=== PATIENT | female | born 1955 | race Caucasian/White ===

== ENCOUNTER → 2023-06-10 14:20 | Outpatient (REF) | payer OTHER, SELFPAY | LOC: WDC 14:20 | PROVIDERS: ATTENDING PHYSICIAN Physician Assistant Medical | DX: Z12.31 Encounter for screening mammogram for malignant neoplasm of breast (principal); Z78.0 Asymptomatic menopausal state | CPT/HCPCS: 77063; 77067; 77080 ==

== ENCOUNTER → 2023-07-06 09:10 | Outpatient (REF) | payer OTHER, SELFPAY | LOC: RAD 09:10 | PROVIDERS: ATTENDING PHYSICIAN Physician Assistant Medical | DX: I10 Essential (primary) hypertension (principal); Z13.6 Encounter for screening for cardiovascular disorders | CPT/HCPCS: 76770 ==

== ENCOUNTER → 2023-12-22 11:39 | Outpatient (REF) | payer OTHER, SELFPAY | LOC: HWRAD 11:39 | PROVIDERS: ATTENDING PHYSICIAN Internal Medicine Critical Care Medicine; FAMILY PHYSICIAN Physician Assistant Medical | DX: R93.89 Abnormal findings on diagnostic imaging of other specified body structures (principal) | CPT/HCPCS: 71250 ==

== ENCOUNTER → 2024-04-06 14:35 | Outpatient (REF) | payer OTHER, SELFPAY | LOC: RAD 14:35 | PROVIDERS: ATTENDING PHYSICIAN Nurse Practitioner | DX: J44.1 Chronic obstructive pulmonary disease with (acute) exacerbation (principal) | CPT/HCPCS: 71046 ==

== ENCOUNTER → 2024-04-12 09:20 | Outpatient (REF) | payer OTHER, SELFPAY | LOC: HWRAD 09:20 | PROVIDERS: ATTENDING PHYSICIAN Internal Medicine Critical Care Medicine; FAMILY PHYSICIAN Physician Assistant Medical | DX: R93.89 Abnormal findings on diagnostic imaging of other specified body structures (principal) | CPT/HCPCS: 71250 ==

== ENCOUNTER → 2024-07-17 09:42 | Outpatient (REF) | payer OTHER, SELFPAY | LOC: HWWDC 09:42 | PROVIDERS: ATTENDING PHYSICIAN Physician Assistant Medical | DX: Z12.31 Encounter for screening mammogram for malignant neoplasm of breast (principal) | CPT/HCPCS: 77063; 77067 ==